=== PATIENT | male | born 1995 | race Caucasian/White ===

== ENCOUNTER 2018-11-05 15:04 | Emergency (ER) | payer MEDICAID ==
[~2018-11-05] VITALS: Ht 180.3 cm; Wt 125.6 kg
[2018-11-05 15:09] VITALS: BP 138/74
--- NOTE | 2018-11-05 16:03 | NUR ---
Patient ambulated to bed 7. RN evaluating patient at bedside.
--- NOTE | 2018-11-05 16:09 | NUR ---
23 Y M bib self c/o productive cough and runny nose x3 days. pt states he has been experiencing cold symptoms- runny nose, sore throat. denies fever. -n/v/d. pt states he has mucus production with his coughs. bed is down, locked, bed rail x 1, ermd notified. pmh- none rx-alkezier cold and flu
--- NOTE | 2018-11-05 16:50 | NUR ---
dr ruiz at bedside
--- NOTE | 2018-11-05 17:20 | NUR ---
pt moved to chair e
--- NOTE | 2018-11-05 17:26 | NUR ---
STREP SWAB COLLECTED AND SENT WITH LAB
[2018-11-05 19:07] VITALS: BP 133/77
--- NOTE | 2018-11-05 19:07 | NUR ---
Patient discharged with v/s stable. Written and verbal after care instructions given and explained. Patient alert, oriented and verbalized understanding of instructions. Ambulatory with steady gait. All questions addressed prior to discharge. ID band removed. Patient advised to follow up with PMD. Rx of PROMETHAZINE/CODEINE, IBUPROFEN given. Patient educated on indication of medication including possible reaction and side effects. Opportunity to ask questions provided and answered.
== END 2018-11-05 19:07 | disposition home or self-care (01) ==
LOC: MED 15:04
DX: J06.9 Acute upper respiratory infection, unspecified (principal)
CPT/HCPCS: 87081; 99283

== ENCOUNTER 2019-06-19 20:20 | Emergency (ER) | payer MEDICAID ==
[~2019-06-19] VITALS: Ht 180.3 cm; Wt 121.6 kg
[2019-06-19 20:28] VITALS: BP 133/79
--- NOTE | 2019-06-19 20:33 | NUR ---
TO LOBBY A/W BED AMBULATORY
--- NOTE | 2019-06-19 23:12 | NUR ---
PT AMBULATED TO BED 03 WITH STEADY GAIT. PT PLACED ON SALESPERSON CORSETS.
--- NOTE | 2019-06-19 23:18 | NUR ---
23 YO M BIB SELF PRESENTS TO ED C/O HEART PALPITATIONS OFF AN ON X 2 DAYS. PT DENIES PALPITATIONS AT THIS TIME. DENIES ANY PAIN/CHEST PAIN, SOB, N/V, LIGHTHEADEDNESS AT THIS TIME. PT DENIES HX OF ANXIETY OR DRUG USE. PT REPORTS PRODUCTIVE COUGH WITH YELLOW SPUTUM X 4 DAYS. -- PT AWAKE, A/O X 4. CALM, COOPERATIVE. BEHAVIOR AGE APPROPRIATE. ANSWERS QUESTIONS WITHOUT DIFFICULTY IN FULL, CLEAR SENTENCES. -- SKIN PINK, WARM, DRY. BREATHING EVEN, UNLABORED. PMH-- DENIES RX-- DENIES
--- NOTE | 2019-06-19 23:32 | NUR ---
DR. AGUILAR EVALUATING AT BEDSIDE.
[2019-06-19 23:50] VITALS: BP 117/66
--- NOTE | 2019-06-19 23:50 | NUR ---
Patient discharged with v/s stable. Written and verbal after care instructions given and explained. Patient verbalized understanding. Ambulatory with steady gait. All questions addressed prior to discharge. Advised to follow up with PMD.
== END 2019-06-19 23:50 | disposition home or self-care (01) ==
LOC: MED 20:20
DX: R00.2 Palpitations (principal)
CPT/HCPCS: 71045; 93005; 99283

== ENCOUNTER 2022-01-30 09:31 | Emergency (ER) | payer MEDICAID, OTHER ==
[~2022-01-30] VITALS: Ht 170.2 cm; Wt 122.5 kg
[2022-01-30 09:38] VITALS: BP 142/78
--- NOTE | 2022-01-30 09:43 | NUR ---
PT AMB TO BED 6.
--- NOTE | 2022-01-30 10:19 | NUR ---
RADIOLOGY AT BEDSIDE .
--- NOTE | 2022-01-30 10:22 | NUR ---
26 y/o male bib self with c/o cough and sore throat x 1 week. Patient denies being around anyone sick. Patient denies SOB or chest pain. Patient states "I have pain, when I cough my throat hurts." Medical History: Denies NKDA
[2022-01-30] MEDS ORDERED: AMOX-1230 PO (11:14)
[2022-01-30 11:30] VITALS: BP 128/75
--- NOTE | 2022-01-30 11:30 | NUR ---
Patient discharged with v/s stable. Written and verbal after care instructions given. Patient alert, oriented and verbalized understanding of instructions. Ambulatory with steady gait. All questions addressed prior to discharge. ID band removed. Patient advised to follow up with PMD. Rx of Amoxicillin/Potassium Clav given. Opportunity to ask questions provided and answered. WORK NOTE HANDED TO PATIENT.
--- NOTE | 2022-01-30 11:31 | NUR ---
Chart checked and completed. The patient's care was reviewed and supervised by Queenie Gamez RN.
== END 2022-01-30 11:30 | disposition home or self-care (01) ==
LOC: MED 09:31
DX: J02.9 Acute pharyngitis, unspecified (principal); Z79.899 Other long term (current) drug therapy
CPT/HCPCS: 71045; 99283; Q0092

== ENCOUNTER 2022-04-18 10:28 | Emergency (ER) | payer OTHER ==
[~2022-04-18] VITALS: Ht 180.3 cm; Wt 119.3 kg
[~2022-04-18 10:28] MED LIST: AMOX-1230 PO
[2022-04-18 10:36] VITALS: BP 115/78
--- NOTE | 2022-04-18 10:50 | NUR ---
C/O 6/ 10 LOWER ABDOMINAL PAIN, LOWER BACK PAIN, HEMATURIA X 3 DAYS. PMH: DENIES
[2022-04-18 11:21] LABS: BASOPHILS # (AUTO) 0.1 K/uL (0.00-0.22); BASOPHILS % (AUTO) 0.6 % (0.0-2.0); EOSINOPHILS # (AUTO) 0.3 K/uL (0-0.4); HEMATOCRIT 47.5 % (36-52); HEMOGLOBIN 16.6 g/dL (12.0-18.0); LYMPHOCYTES # (AUTO) 3.1 K/uL (2.0-11.5); LYMPHOCYTES % (AUTO) 28.3 % (20.5-51.1); MEAN CORPUSCULAR HEMOGLOBIN 32 pg (27-31); MEAN CORPUSCULAR HGB CONC 35 g/dL (33-37); MEAN CORPUSCULAR VOLUME 91.9 fL (80-94); MONOCYTES # (AUTO) 0.7 K/uL (0.8-1.0); MONOCYTES % (AUTO) 6.5 % (1.7-9.3); NEUTROPHILS # (AUTO) 6.8 K/uL (1.8-7.7); NEUTROPHILS % (AUTO) 61.6 % (42.2-75.2); PLATELET COUNT (AUTO) 292 K/uL (140-450); RED BLOOD CELL COUNT(AUTO) 5.17 MIL/uL (4.20-6.10); RED CELL DISTRIBUTION WIDTH 13.1 % (11.6-13.7)
[2022-04-18 11:27] LABS: ALBUMIN 3.8 g/dL (3.4-5.0); ANION GAP 12.7 (8-16); CARBON DIOXIDE 28.8 mmol/L (21-32); CREATININE 1.1 mg/dL (0.6-1.3); POTASSIUM 4.5 mmol/L (3.5-5.1); TOTAL BILIRUBIN 0.7 mg/dL (0.0-1.0)
[2022-04-18 13:00] LABS: APPEARANCE,URINE CLEAR (CLEAR); BILIRUBIN,URINE NEGATIVE (NEGATIVE); BLOOD, URINE 1+ (NEGATIVE); COLOR,URINE YELLOW (YELLOW); LEUKOCYTE ESTERASE ,URINE NEGATIVE (NEGATIVE); NITRITE, URINE NEGATIVE (NEGATIVE); UGLUCOSE NEGATIVE (NEGATIVE)
--- NOTE | 2022-04-18 13:40 | NUR ---
Patient discharged with v/s stable. Written and verbal after care instructions FOR HEMATURIA given and explained. Patient verbalized understanding. Ambulatory with steady gait. All questions addressed prior to discharge. Advised to follow up with PMD.
--- NOTE | 2022-04-18 13:46 | NUR ---
The patient's care was reviewed and supervised by Maureen Asher RN.
== END 2022-04-18 13:40 | disposition home or self-care (01) ==
LOC: MED 10:28
DX: R31.9 Hematuria, unspecified (principal); R10.30 Lower abdominal pain, unspecified; Z79.899 Other long term (current) drug therapy
CPT/HCPCS: 36415; 80053; 81003; 83690; 85025; 99284

== ENCOUNTER 2022-07-07 18:21 | Emergency (ER) | payer OTHER ==
[~2022-07-07] VITALS: Ht 180.3 cm; Wt 117.9 kg
[2022-07-07 19:04] VITALS: BP 111/71
[2022-07-07] MEDS ORDERED: BACTO TP (20:50)
[2022-07-07] MEDS ORDERED: CEPH-588 PO (20:50)
[2022-07-07] MEDS ORDERED: IBUP-2213 PO (20:50)
[2022-07-07 21:19] VITALS: BP 111/71
--- NOTE | 2022-07-07 21:20 | NUR ---
NO NURSING INTERVENTIONS REQUIRED PER ERMD.
--- NOTE | 2022-07-07 21:20 | NUR ---
Patient discharged with v/s stable. Written and verbal after care instructions given and explained. Patient alert, oriented and verbalized understanding of instructions. Ambulatory with steady gait. All questions addressed prior to discharge. ID band removed. Patient advised to follow up with PMD. Rx of BACTROBAN, KEFLEX, IBUPROFEN given. Patient educated on indication of medication including possible reaction and side effects. Opportunity to ask questions provided and answered.
== END 2022-07-07 21:20 | disposition home or self-care (01) ==
LOC: MED 18:21
DX: L03.311 Cellulitis of abdominal wall (principal)
CPT/HCPCS: 99283